=== PATIENT | male | born 1965 | race Caucasian/White ===

== ENCOUNTER 2021-06-29 06:24 | Emergency (ER) | payer OTHER, MEDICAID ==
[~2021-06-29] VITALS: Ht 170.2 cm; Wt 86.2 kg
[2021-06-29 06:28] VITALS: BP_SYST 168
--- NOTE | 2021-06-29 06:28 | NUR ---
Patient to ER bed 2 to gown for evaluation. Side rails up.
--- NOTE | 2021-06-29 06:37 | NUR ---
DR. MARIN AT BEDSIDE FOR EVALUATION.
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
--- NOTE | 2021-06-29 06:49 | NUR ---
PATIENT TAKEN TO XRAY RADIOLOGY VIA AMBULATORY ACCOMPANIED BY STAFF.
--- NOTE | 2021-06-29 07:00 | NUR ---
DR. MARIN REMOVED C-COLLAR PRECAUTIONS AFTER XRAY.
--- NOTE | 2021-06-29 07:09 | NUR ---
REPORT GIVEN TO RICHARD YOUNG WHO WILL ASSUME ALL CARE OF PATIENT.
[2021-06-29] MEDS ORDERED: IBUP-1971 PO (07:31)
[2021-06-29] MEDS ORDERED: SOM350 PO (07:31)
--- NOTE | 2021-06-29 07:42 | NUR ---
pt's bp 155/110, DR MARIN INFORMED. OK TO DISCHARGE. PT HAS HISTORY OF HTN AND DID NOT TAKE HIS MEDS TODAY. WILL TAKE HIS SCHEDULED MEDS ONCE HE GETS HOME.
--- NOTE | 2021-06-29 07:51 | NUR ---
Patient given written and verbal discharge instructions and verbalizes understanding. ER MD discussed with patient the results and treatment provided. Patient in stable condition. ID arm band removed. Rx of ibuprofen, soma given. Patient educated on pain management and to follow up with PMD. Pain Scale . Opportunity for questions provided and answered. Medication side effect fact sheet provided.
[2021-06-29 08:13] VITALS: BP_SYST 155
== END 2021-06-29 08:13 | disposition home or self-care (01) ==
LOC: SED 06:24
DX: S13.4XXA Sprain of ligaments of cervical spine, initial encounter (principal); S33.5XXA Sprain of ligaments of lumbar spine, initial encounter; V49.49XA Driver injured in collision with other motor vehicles in traffic accident, initial encounter; Y93.89 Activity, other specified; Y92.89 Other specified places as the place of occurrence of the external cause; Y99.8 Other external cause status
CPT/HCPCS: 71045; 72040-TC; 72100-TC; 99284